=== PATIENT | male | born 1950 | race Caucasian/White ===

== ENCOUNTER 2021-01-08 17:57 | Emergency (ER) | payer OTHER, MEDICARE ==
[~2021-01-08] VITALS: Ht 177.8 cm; Wt 70.0 kg
[2021-01-08 18:04] VITALS: BP 154/81
[2021-01-08] MEDS ORDERED: ketorolac trometh. 30mg/ml inj. IM ONE (19:15)
== END 2021-01-08 19:29 | disposition home or self-care (01) ==
LOC: ER 17:57
DX: M54.9 Dorsalgia, unspecified (principal); M25.512 Pain in left shoulder; M54.2 Cervicalgia
CPT/HCPCS: 96372; 99283; J1885